=== PATIENT | female | born 1950 | race Caucasian/White ===

== ENCOUNTER 2018-07-09 15:04 | Emergency (ER) | payer MEDICARE, BC ==
--- NOTE | 2018-07-09 15:33 | EDM.PDOC ---
ED HPI GENERAL MEDICAL PROBLEM - General Chief Complaint: Cardiovascular Problem Stated Complaint: CHEST PAIN Time Seen by Provider: 07/09/18 15:35 Source of Information: Reports: Patient History Limitations: Reports: Other (minimal records) - History of Present Illness INITIAL COMMENTS - FREE TEXT/NARRATIVE: 67 yo female who gets most of her care in [place] presents with substernal burning for a few weeks. Has many risk factors for CAD including borderline HTN , obesity, a cholesterol of around 300 and a younger brother with known coronary dz. She has not shared her sx's with her doctor. Thinks eating makes her sx's worse, but is not clear if exertion worsens it. Has never had an EKG before. Does take a baby aspirin daily. Non-smoker, no known diabetes. 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 (see below) (none) - Related Data Allergies Allergy/AdvReac Type Severity Reaction Status Date / Time No Known Allergies Allergy Verified 07/09/18 15:17 Home Meds: Home Meds Aspirin 81 mg PO DAILY 04/11/13 [History] [place]-3/DHA/Epa/Fish Oil [[place]-3 Fish Oil 1,000 MG Sfgl] 1,000 mg PO DAILY [History] Past Medical History HEENT History: Reports: Impaired Vision Cardiovascular History: Reports: High Cholesterol, Hypertension, SOB on Exertion Gastrointestinal History: Reports: None CERTIFIED MIDWIFE History: Reports: , Prolapsed Uterus Musculoskeletal History: Reports: Arthritis Psychiatric History: Reports: Anxiety, Other (See Below) Endocrine/Metabolic History: Reports: Hypothyroidism, Obesity/BMI 30+ - Infectious Disease History Infectious Disease History: Reports: Chicken Pox - Past Surgical History Head Surgeries/Procedures: Reports: None HEENT Surgical History: Reports: Cataract Surgery, Oral Surgery Cardiovascular Surgical History: Reports: None GI Surgical History: Reports: Appendectomy, Colonoscopy Female Surgical History: Reports: Hysterectomy, Salpingo-Oophorectomy Musculoskeletal Surgical History: Reports: None Dermatological Surgical History: Reports: None Social & Family History - Tobacco Use Smoking Status *Q: Never Smoker Second Hand Smoke Exposure: No - Caffeine Use Caffeine Use: Reports: Coffee, Soda - Recreational Drug Use Recreational Drug Use: No ED ROS GENERAL - Review of Systems Review Of Systems: See Below Constitutional: Reports: No Symptoms HEENT: Reports: No Symptoms Respiratory: Reports: No Symptoms Cardiovascular: Reports: Chest Pain (substernal burning), Dyspnea on Exertion ( mild). Denies: Claudication, Edema, Orthopnea, Palpitations, Syncope Endocrine: Reports: No Symptoms GI/Abdominal: Reports: No Symptoms : Reports: No Symptoms Musculoskeletal: Reports: No Symptoms Skin: Reports: No Symptoms Neurological: Reports: No Symptoms ED EXAM, GENERAL - Physical Exam Exam: See Below Exam Limited By: No Limitations General Appearance: Alert, WD/WN, No Apparent Distress Eye Exam: Bilateral Eye: EOMI Ears: Normal External Exam, Normal Canal, Hearing Grossly Normal Ear Exam: Bilateral Ear: Auricle Normal, Canal Normal Nose: Normal Inspection, Normal Mucosa, No Blood Throat/Mouth: Normal Inspection, Normal Lips, Normal Oropharynx, Normal Voice, No Airway Compromise Head: Atraumatic, Normocephalic Neck: Normal Inspection, Non-Tender Respiratory/Chest: No Respiratory Distress, Lungs Clear, Normal Breath Sounds, No Accessory Muscle Use Cardiovascular: Regular Rate, Rhythm, No Edema GI/Abdominal: Normal Bowel Sounds, Soft, Non-Tender, No Distention Back Exam: Normal Inspection. No: CVA Tenderness (R), CVA Tenderness (L) Extremities: Normal Inspection, Normal Range of Motion, Non-Tender, No Pedal Edema Neurological: Alert, Oriented, CN II-XII Intact, Normal Cognition, No Motor/ Sensory Deficits Psychiatric: Normal Affect, Normal Mood Skin Exam: Warm, Dry, Intact, Normal Color, No Rash EKG INTERPRETATION EKG Date: 07/09/18 Time: 15:15 Rhythm: NSR Rate (Beats/Min): 82 [place]: Normal P-Wave: Present QRS: Other (L ant fascicular block) ST-T: Normal QT: Normal Comparison: NA - No Prior EKG EKG Interpretation Comments: T wave inversion anterior leads. ? Q's in inferior leads. Course - Vital Signs Last Recorded V/S: Last Vital Signs Temp 36.5 C 07/09/18 15:26 Pulse 69 07/09/18 16:45 Resp 13 07/09/18 16:45 BP 145/78 H 07/09/18 16:45 Pulse Ox 93 L 07/09/18 16:45 - Orders/Labs/Meds Orders: Active Orders 24 hr Category Date Time Status Cardiac Monitoring [RC] .As Directed Care 07/09/18 15:35 Active EKG Documentation Completion [RC] ASDIRECTED Care 07/09/18 15:29 Active Nitroglycerin [Nitrostat] Med 07/09/18 15:41 Active 0.4 mg SL Q5M PRN EKG 12 Lead [EK] Routine Ther 07/09/18 15:29 Ordered Medication Orders Nitroglycerin (Nitrostat) 0.4 mg SL Q5M PRN PRN Reason: Chest Pain Labs: Laboratory Tests 07/09/18 07/09/18 07/09/18 Range/Units 15:53 15:53 16:14 WBC 7.1 (4.5-11.0) K/uL RBC 5.16 (3.30-5.50) M/uL Hgb 15.5 H (12.0-15.0) g/dL Hct 45.6 (36.0-48.0) % MCV 88 (80-98) fL MCH 30 (27-31) pg MCHC 34 (32-36) % Plt Count 243 (150-400) K/uL Sodium 142 (140-148) mmol/L Potassium 3.5 L (3.6-5.2) mmol/L Chloride 104 (100-108) mmol/L Carbon Dioxide 28 (21-32) mmol/L Anion Gap 13.5 (5.0-14.0) mmol/L BUN 14 (7-18) mg/dL Creatinine 1.2 H (0.6-1.0) mg/dL Est Cr Clr Drug Dosing 42.06 mL/min Estimated GFR (MDRD) 45 L (>60) Glucose 111 H (74-106) mg/dL Calcium 9.6 (8.5-10.1) mg/dL Troponin I < 0.017 (0.000-0.056) ng/mL Urine Color Yellow Urine Appearance Clear Urine pH 7.0 (4.5-8.0) Ur Specific [place] 1.005 L (1.008-1.030) Urine Protein Negative (NEGATIVE) mg/dL Urine Glucose (UA) Normal (NEGATIVE) mg/dL Urine Ketones Negative (NEGATIVE) mg/dL Urine Occult Blood Negative (NEGATIVE) Urine Nitrite Negative (NEGATIVE) Urine Bilirubin Negative (NEGATIVE) Urine Urobilinogen Normal (NORMAL) mg/dL Ur Leukocyte Esterase Negative (NEGATIVE) Urine RBC Not seen (0-5) Urine WBC Not seen (0-5) Ur Epithelial Cells Rare Amorphous Sediment Not seen Urine Bacteria Not seen Urine Mucus Not seen Meds: Medications Generic Name Dose Route Start Last Admin Trade Name Freq PRN Reason Stop Dose Admin Nitroglycerin 0.4 mg 07/09/18 15:41 Nitrostat SL Q5M PRN Chest Pain Discontinued Medications Generic Name Dose Route Start Last Admin Trade Name Freq PRN Reason Stop Dose Admin Aspirin 324 mg 07/09/18 15:41 07/09/18 16:06 Aspirin PO 07/09/18 15:42 324 mg ONETIME ONE Administration Departure - Departure Time of Disposition: 17:15 Disposition: DC/Tfer to Acute Hospital 02 Reason for Transfer *Q: Other Condition: Fair Clinical Impression: Unstable angina Referrals: PCP,None [Primary Care Provider] - Forms: ED Department Discharge - My Orders Last 24 Hours: My Active Orders 07/09/18 15:29 EKG Documentation Completion [RC] ASDIRECTED EKG 12 Lead [EK] Routine 07/09/18 15:35 Cardiac Monitoring [RC] .As Directed 07/09/18 15:41 Nitroglycerin [Nitrostat] 0.4 mg SL Q5M PRN - Assessment/Plan Last 24 Hours: My Active Orders 07/09/18 15:29 EKG Documentation Completion [RC] ASDIRECTED EKG 12 Lead [EK] Routine 07/09/18 15:35 Cardiac Monitoring [RC] .As Directed 07/09/18 15:41 Nitroglycerin [Nitrostat] 0.4 mg SL Q5M PRN
[2018-07-09] MEDS ORDERED: Nitroglycerin 0.4 MG Tab.SL SL PRN (15:41)
[2018-07-09] MEDS ORDERED: Aspirin 81 MG Tab.Chew PO ONE (15:41)
[2018-07-09] MEDS ORDERED: atorvaSTATin 20 MG Tab PO ONE (17:00)
[2018-07-09] MEDS ORDERED: Clopidogrel 75 MG Tab PO ONE (17:01)
[2018-07-09] MEDS ORDERED: Metoprolol Tartrate 25 MG Tab PO ONE (17:01)
[2018-07-09] MEDS ORDERED: Heparin Sodium 5,000 Units/ML Vial IVPUSH ONE (17:01)
[2018-07-09] MEDS ORDERED: Sodium Chloride 0.9% 10 ML Syringe FLUSH PRN (17:04)
[2018-07-09] MEDS ORDERED: Heparin Sodium/D5W 25,000 UNITS/500 ML BAG IV SCH (17:15)
[2018-07-09 17:19] VITALS: BP 166/86
== END 2018-07-09 17:51 ==
LOC: JP.ED 15:04
DX: I20.0 Unstable angina (principal); I10 Essential (primary) hypertension; E66.9 Obesity, unspecified; Z79.82 Long term (current) use of aspirin; Z79.899 Other long term (current) drug therapy
CPT/HCPCS: 36415; 80048; 81001; 84484; 85027; 93005; 93010; 96374; 99285; A9270; J1644